=== PATIENT | female | born 1985 | race Caucasian/White ===

== ENCOUNTER 2017-10-19 08:24 | Emergency (ER) | payer MEDICAID, SELFPAY ==
[2017-10-19 09:12] LABS: Bilirubin Negative (Negative); Blood, Urine Large (Negative); Clarity Clear (Clear); Glucose, Urine (Dipstick) Negative (Negative); Leukocyte Small (Negative); Nitrite Negative (Negative); Protein, Urine (Dipstick) Negative (Neg-Trace); Urobilinogen 0.2 mg/dL (0.2-1.0); pH, Urine 8.5 (5.0-9.0)
[2017-10-19 09:17] LABS: #Basophils 0.1 thou/uL (0.0-0.2); #Eosinphils 0.1 thou/uL (0.0-0.7); #Lymphocytes 3.3 thou/uL (1.20-3.40); #Monocytes 0.6 thou/uL (0.11-0.59); #Neutrophils 3.7 thou/uL (1.40-6.50); %Basophils 1.2 % (0.0-1.0); %Eosinophils 1.9 % (0.0-10.0); %Lymphocytes 41.6 % (21.0-51.0); %Neutrophils 47.4 % (42.0-75.0); Hemoglobin 13.4 g/dL (12.0-16.0); Mean Corpuscular HGB CONC 31.8 g/dL (32.0-36.0); Mean Corpuscular Hemoglobin 29.9 pg (27.0-31.0); Mean Corpuscular Volume 93.9 fl (81.0-99.0); Mean Platelet Volume 5.9 fL (7.4-10.4); Platelet Count 315 thou/uL (130-400); RBC Distribution Width 12.3 % (11.5-14.5); Red Blood Cell (RBC) Count 4.49 mill/uL (4.20-5.40); White Blood Cell (WBC) Count 7.8 thou/uL (4.8-10.8)
[2017-10-19 09:21] LABS: INR-International Normal Ratio 0.9; Prothrombin Time 12.3 SEC (12.0-14.7)
[2017-10-19 09:29] LABS: ALT (SGPT) 18 U/L (8-55); AST (SGOT) 16 U/L (5-34); Albumin 3.7 g/dL (3.5-5.0); Alkaline Phosphatase 90 U/L (40-150); Anion Gap 12 mmol/L (10-20); BUN (Urea Nitrogen) 8 mg/dL (7.0-18.7); Bilirubin, Total 0.2 mg/dL (0.2-1.2); Calc. Creatinine Clearance 0 mL/min (70-130); Calcium 8.9 mg/dL (7.8-10.44); Carbon Dioxide 27 mmol/L (22-29); Chloride 104 mmol/L (98-107); Estimated GFR-MDRD Greater than 90; Globulin 2.5 g/dL (2.4-3.5); Glucose 89 mg/dL (70-105); Potassium 4.1 mmol/L (3.5-5.1); Protein, Total 6.2 g/dL (6.0-8.3); Sodium 139 mmol/L (136-145)
[2017-10-19 09:34] LABS: Bacteria/HPF 1+ HPF (None Seen)
[2017-10-19 09:35] LABS: Other Microscopic Description NO
[2017-10-19 09:35] LABS: BHCG - Serum Negative (NEGATIVE)
[2017-10-19 09:36] LABS: Pregs Control Bar Appear? YES (CONTROL BAR)
== END 2017-10-19 09:44 | disposition home or self-care (01) ==
LOC: NAV ERS 08:24
DX: N92.0 Excessive and frequent menstruation with regular cycle (principal); F17.210 Nicotine dependence, cigarettes, uncomplicated; Z79.899 Other long term (current) drug therapy
CPT/HCPCS: 80053; 81003; 81015; 84703; 85025; 85610; 99284

== ENCOUNTER 2019-08-09 18:42 | Emergency (ER) | payer MEDICAID, OTHER ==
[2019-08-09] MEDS ORDERED: diphenhydrAMINE 50 MG/ML VIAL ONE (19:49)
[2019-08-09] MEDS ORDERED: Metoclopramide HCl 10 MG/2 ML VIAL ONE (19:49)
[2019-08-09] MEDS ORDERED: Sodium Chloride 0.9% 1,000 ML ONE (19:49)
--- NOTE | 2019-08-10 09:06 | CT ---
HEAD CT WITHOUT CONTRAST: Date: 08/09/19 HISTORY: Not provided. COMPARISON: None. FINDINGS: There is a 1.0 x 0.7 cm hyperdensity in the left navarro radiata. Questionable hyperdensity in the rig ht temporal subcortical white matter measuring 0.6 x 1.0 cm. Basilar cisterns are patent. With regards to the cerebrum, cortical rodriguez-white matter differentiation is preserved. No evidence of hydrocephalus. 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 Evaluation is incomplete. There appears to be volume loss involving the brainstem and possible cervicomedullary junction. Additionally, there may be volume loss involving the inferior cerebellar vermis. Adequate aeration of the sinuses and mastoid air cells. Lateral ventricles are decompressed. However, the fourth ventricle is prominent. Fullness of the nasopharynx, likely due to adenoid tonsillar hypertrophy. Direct visualization is rec ommended. IMPRESSION: 1. Hyperdensities involving the left navarro radiata and right temporal subcortical white matter. Fin dings may represent hemorrhage. Other etiologies could include cavernous malformation. Comparison wit h prior imaging would be beneficial. If prior images are not available, consider brain MRI. 2. Malacic changes involving the brainstem and cerebellar vermis, which are presumed to be due to lo ngstanding process. Occipital decompressive craniectomy is noted. Correlate for past medical history of Chiari I malformation. Discussed with ER physician, Dr. Preston, on 08/09/19 at 2050 hours. CODE CR. POS: [facility]
== END 2019-08-09 21:01 | disposition home or self-care (01) ==
LOC: NAV ERS 18:42
DX: R51 Headache (principal); F17.210 Nicotine dependence, cigarettes, uncomplicated
CPT/HCPCS: 70450; 96365; 96375; J1200; J2765; J7050

== ENCOUNTER 2019-08-29 12:42 | Emergency (ER) | payer OTHER ==
[2019-08-29] MEDS ORDERED: Aspirin Chewable 81 MG TAB ONE (13:09)
[2019-08-29 13:15] LABS: #Basophils 0.2 thou/uL (0.0-0.2); #Eosinphils 0.2 thou/uL (0.0-0.7); #Monocytes 0.7 thou/uL (0.11-0.59); #Neutrophils 5.7 thou/uL (1.40-6.50); %Basophils 1.7 % (0.0-1.0); %Eosinophils 1.6 % (0.0-10.0); %Lymphocytes 30.7 % (21.0-51.0); %Monocytes 7.3 % (0.0-10.0); %Neutrophils 58.7 % (42.0-75.0); Hemoglobin 14.6 g/dL (12.0-16.0); Mean Corpuscular HGB CONC 30.9 g/dL (32.0-36.0); Mean Corpuscular Hemoglobin 28.1 pg (27.0-31.0); Mean Corpuscular Volume 90.7 fL (78.0-98.0); Mean Platelet Volume 5.7 fL (7.4-10.4); Platelet Count 303 thou/uL (130-400); RBC Distribution Width 13.5 % (11.5-14.5); Red Blood Cell (RBC) Count 5.19 mill/uL (4.20-5.40); White Blood Cell (WBC) Count 9.6 thou/uL (4.8-10.8)
[2019-08-29 13:36] LABS: ALT (SGPT) 10 U/L (8-55); AST (SGOT) 12 U/L (5-34); Albumin 4.1 g/dL (3.5-5.0); Alkaline Phosphatase 94 U/L (40-110); Anion Gap 15 mmol/L (10-20); BUN (Urea Nitrogen) 12 mg/dL (7.0-18.7); Bilirubin, Total 0.2 mg/dL (0.2-1.2); CK (CPK) 41 U/L (29-168); Calc. Creatinine Clearance 0 mL/min (70-130); Calcium 9.1 mg/dL (7.8-10.44); Carbon Dioxide 24 mmol/L (22-29); Chloride 100 mmol/L (98-107); Estimated GFR-MDRD Greater than 90; Globulin 2.6 g/dL (2.4-3.5); Glucose 138 mg/dL (70-105); Lipase 31 U/L (8-78); Potassium 3.5 mmol/L (3.5-5.1); Protein, Total 6.7 g/dL (6.0-8.3); Sodium 135 mmol/L (136-145)
--- NOTE | 2019-08-29 13:44 | RAD ---
PORTABLE CHEST 1 VIEW: DATE: 08/29/2019. TIME: 1:01 p.m. HISTORY: Chest pain. FINDINGS: The heart size is normal. The lungs are expanded without focal areas of consolidation, pneumothorace s, or pleural effusions. IMPRESSION: No radiographic evidence of acute cardiopulmonary process. POS: [facility]
== END 2019-08-29 14:37 | disposition home or self-care (01) ==
LOC: NAV ERS 12:42
DX: R07.9 Chest pain, unspecified (principal); F17.210 Nicotine dependence, cigarettes, uncomplicated; Z86.73 Personal history of transient ischemic attack (TIA), and cerebral infarction without residual deficits; Z79.899 Other long term (current) drug therapy; Z79.891 Long term (current) use of opiate analgesic
CPT/HCPCS: 36416; 71045; 80053; 82550; 83690; 84484; 85025; 93005